=== PATIENT | male | born 1970 | race Caucasian/White ===

== ENCOUNTER 2017-01-24 12:15 | Emergency (ER) | payer OTHER ==
[~2017-01-24] VITALS: Ht 175.3 cm; Wt 105.1 kg
[~2017-01-24 12:15] MED LIST: ABILIFY2 MG PO; ALLEGRA ALLERG180 MG PO; ALPRAZOLAM0.25 M2 PO; AMIODARONE HCL200 MG PO; AMIODARONE HCL400 MG PO; BENADRYL50 MG PO; BUDEPRION SR150 MG PO; CARVEDILOL25 MG PO; DIGOXIN125 MCG PO; DOXYCYCLINE HY100 M3 PO; ENTRESTO 49 MG1 EACH PO; EPLERENONE25 MG PO; FISH OIL 1,0001 EAC7 PO; GUAIFENESI100 MG/5 M PO; LANOXIN,DIGI0.125 MG PO; LASIX40 MG PO; LIPITOR20 MG PO; LISINOPRIL10 MG PO; LOSARTAN POTASS50 MG PO; LUNESTA3 MG PO; MAGNESIUM OXID400 MG PO; OMEPRAZOLE40 M1 PO; PRAVASTATIN SOD40 MG PO; PREDNISONE20 MG PO; WELLBUTRIN XL300 MG PO; ZESTRIL,PRINIVI10 MG PO; ZOLOFT50 MG PO; Zestril,Prinivil PO
[2017-01-24 13:42] LABS: HEMATOCRIT 46.9 % (38.0-50.0); MCV 97.1 FL (86-99); MEAN PLAT.VOLUME 10.3 uM^3 (9.0-12.4); PLATELET COUNT 146 K/uL (156-360); RBC DIS.WIDTH-CV 12.8 % (11.8-14.6); RBC DIS.WIDTH-SD 46.2 % (39-53); RED BLOOD COUNT 4.83 M/uL (4.00-5.50); WHITE BLOOD COUNT 6.1 K/uL (4.1-10.2)
[2017-01-24 13:50] LABS: CHLORIDE 103 mEq/L (99-109); POTASSIUM 4.3 mEq/L (3.7-5.4); SODIUM 136 mEq/L (136-147)
[2017-01-24 13:52] LABS: GLUCOSE 95 mg/dL (70-99)
[2017-01-24 13:53] LABS: ANION GAP 10 MEQ/L (2-14)
[2017-01-24 13:56] LABS: GFR ESTIMATE (CALCULATED) > 59 mL/min/; UREA NITROGEN (BUN) 11 mg/dL (9-23)
[2017-01-24 14:03] LABS: TROP-I INTERPRETATION NEGATIVE; TROPONIN-I < 0.01 ng/mL (0.0-0.30)
[2017-01-24 16:18] LABS: TROP-I INTERPRETATION NEGATIVE; TROPONIN-I < 0.01 ng/mL (0.0-0.30)
[2017-01-24 16:45] VITALS: BP 123/83
== END 2017-01-24 16:45 | disposition home or self-care (01) ==
LOC: EME 12:15
PROVIDERS: Emergency Medicine
DX: R07.89 Other chest pain (principal); E78.5 Hyperlipidemia, unspecified; I10 Essential (primary) hypertension; Z95.0 Presence of cardiac pacemaker; F17.200 Nicotine dependence, unspecified, uncomplicated; F32.9 Major depressive disorder, single episode, unspecified; Z88.0 Allergy status to penicillin; Z88.1 Allergy status to other antibiotic agents
CPT/HCPCS: 71010; 80048; 84484; 85027; 93005; 99281; 99285

== ENCOUNTER 2017-12-11 21:33 | Inpatient (IN) | payer OTHER ==
[~2017-12-11] VITALS: Ht 175.3 cm; Wt 102.7 kg
[2017-12-11 23:25] LABS: HEMATOCRIT 43.4 % (38.0-50.0); HEMOGLOBIN 15.8 G/DL (12.5-16.6); MCH 35.1 PG (29.0-34.0); MCHC 36.4 G/DL (30.0-36.0); MCV 96.4 FL (86-99); PLATELET COUNT 117 K/uL (156-360); RBC DIS.WIDTH-CV 12.7 % (11.8-14.6); RBC DIS.WIDTH-SD 45.6 % (39-53); WHITE BLOOD COUNT 5.3 K/uL (4.1-10.2)
[2017-12-11 23:32] LABS: CHLORIDE 100 mEq/L (99-109); POTASSIUM 3.2 mEq/L (3.7-5.4); SODIUM 136 mEq/L (136-147)
[2017-12-11 23:34] LABS: GLUCOSE 88 mg/dL (70-99)
[2017-12-11 23:37] LABS: SERUM ETHYL ALCOHOL 289 mg/dL
[2017-12-11 23:38] LABS: CREATININE 0.7 mg/dL (0.6-1.3); GFR ESTIMATE (CALCULATED) > 59 mL/min/ (58.99-99999)
[2017-12-11 23:39] LABS: UREA NITROGEN (BUN) 6 mg/dL (9-23)
[2017-12-12 07:59] LABS: APPEARANCE CLEAR ((CLEAR)); BILIRUBIN NEGATIVE; BLOOD SMALL; COLOR YELLOW ((YELLOW)); GLUCOSE (STRIP) NEGATIVE; KETONES NEGATIVE; LEUKOCYTES NEGATIVE; NITRITE NEGATIVE; PROTEIN (STRIP) NEGATIVE; SPECIFIC GRAVITY 1.006 (1.000-1.030)
[2017-12-12 08:15] LABS: AMPHETAMINE NEGATIVE (500 ng/mL); BARBITURATES NEGATIVE (200 ng/mL); BENZODIAZEPINES NEGATIVE (150 ng/mL); BUPRENORPHINE NEGATIVE (10 ng/mL); COCAINE NEGATIVE (150 ng/mL); METHADONE NEGATIVE (200 ng/mL); METHAMPHETAMINE NEGATIVE (500 ng/mL); OPIATES (MORPHINE) NEGATIVE (100 ng/mL); OXYCODONE NEGATIVE (100 ng/mL); PHENCYCLIDINE NEGATIVE (25 ng/mL); PROPOXYPHENE NEGATIVE (300 ng/mL); THC CANNABINOIDS NEGATIVE (50 ng/mL); TRICYCLIC ANTIDEPRESSANTS NEGATIVE (300 ng/mL)
[2017-12-12 08:22] LABS: BACTERIA RARE /HPF; EPITHELIAL CELLS RARE /HPF; MUCUS TRACE /LPF; RED BLOOD CELLS 0-5 /HPF (0-5); UCUL ADDED? NO; WHITE BLOOD CELLS 0-5 /HPF (0-5)
[2017-12-12] MEDS ORDERED: ENTRESTO 49 MG1 EACH PO (10:40)
[2017-12-12] MEDS ORDERED: CARVEDILOL25 MG PO (10:40)
[2017-12-12] MEDS ORDERED: EPLERENONE25 MG PO (10:41)
[2017-12-12] MEDS ORDERED: AMIODARONE HCL200 MG PO (10:41)
[2017-12-12] MEDS ORDERED: ABILIFY15 MG PO (10:41)
[2017-12-12] MEDS ORDERED: BENADRYL25 MG PO (12:23)
[2017-12-12 14:25] VITALS: BP 125/84
[2017-12-12 16:07] VITALS: BP 125/84
[2017-12-13 10:08] VITALS: BP 107/69
[2017-12-13 16:44] VITALS: BP 136/71
[2017-12-14 08:51] VITALS: BP 122/80
[2017-12-14] MEDS ORDERED: ABILIFY15 MG PO (09:27)
[2017-12-14] MEDS ORDERED: Thiamine,Vitamin B1 PO (09:27)
[2017-12-14] MEDS ORDERED: FOLIC ACID1 MG PO (09:27)
== END 2017-12-14 11:30 | disposition home or self-care (01) | DRG 885 ==
LOC: EME 21:33 → 1WEST 12-12 11:11 → EDOF 12-12 11:11 → 1WEST 12-12 11:11
PROVIDERS: Emergency Medicine
PROC: HZ2ZZZZ Detoxification Services for Substance Abuse Treatment (ICD-10-PCS; principal; 2017-12-12)
DX: F33.2 Major depressive disorder, recurrent severe without psychotic features (principal); R45.851 Suicidal ideations; F10.239 Alcohol dependence with withdrawal, unspecified; E78.5 Hyperlipidemia, unspecified; F17.210 Nicotine dependence, cigarettes, uncomplicated; F10.229 Alcohol dependence with intoxication, unspecified; Y90.8 Blood alcohol level of 240 mg/100 ml or more; Z88.0 Allergy status to penicillin; Z91.14 Patient's other noncompliance with medication regimen; Z98.84 Bariatric surgery status; Z81.8 Family history of other mental and behavioral disorders; Z81.1 Family history of alcohol abuse and dependence
CPT/HCPCS: 80048; 81003; 85027; 90837; 97165 GO; 99281; 99285; G0480

== ENCOUNTER → 2018-02-27 | Outpatient (CLI) | payer OTHER ==
[~2018-02-27] VITALS: Ht 175.3 cm; Wt 101.1 kg
[~2018-02-27] MED LIST changes: +ABILIFY15 MG PO; +BENADRYL25 MG PO; +COREG25 M1 PO; +FOLIC ACID1 MG PO; +LIBRIUM25 MG PO; +Thiamine,Vitamin B1 PO; +WELLBUTRIN SR100 MG PO
== END | disposition home or self-care (01) ==
LOC: AMB 11:58
DX: D12.3 Benign neoplasm of transverse colon (principal); D12.2 Benign neoplasm of ascending colon; K63.5 Polyp of colon; K64.8 Other hemorrhoids; K57.30 Diverticulosis of large intestine without perforation or abscess without bleeding; Z80.0 Family history of malignant neoplasm of digestive organs; I42.9 Cardiomyopathy, unspecified; E78.00 Pure hypercholesterolemia, unspecified; I10 Essential (primary) hypertension; Z85.89 Personal history of malignant neoplasm of other organs and systems; Z98.84 Bariatric surgery status; F17.200 Nicotine dependence, unspecified, uncomplicated; Z88.0 Allergy status to penicillin
CPT/HCPCS: 88305; J2250

== ENCOUNTER 2018-03-27 13:20 | Emergency (ER) | payer OTHER ==
[~2018-03-27] VITALS: Ht 175.3 cm; Wt 98.9 kg
[2018-03-27 14:16] LABS: BASOPHIL (%) 0.7 % (0-1); BASOPHIL COUNT 0.1 K/uL (0-0.1); EOSINOPHIL (%) 0.5 % (0-5); HEMATOCRIT 50.6 % (38.0-50.0); HEMOGLOBIN 18.1 G/DL (12.5-16.6); IMMATURE GRANULOCYTE (%) 0.8 % (0.0-0.7); LYMPHOCYTE (%) 13.6 % (15-42); LYMPHOCYTE COUNT 1.2 K/uL (1.0-2.8); MCH 35.8 PG (29.0-34.0); MCHC 35.8 G/DL (30.0-36.0); MCV 100.2 FL (86-99); MONOCYTE (%) 10.9 % (3-12); MONOCYTE COUNT 0.9 K/uL (0-0.8); NEUTROPHIL (%) 73.5 % (45-76); NEUTROPHIL COUNT 6.3 K/uL (1.8-6.4); PLATELET COUNT 146 K/uL (156-360); RBC DIS.WIDTH-CV 12.9 % (11.8-14.6); RBC DIS.WIDTH-SD 47.8 % (39-53); RED BLOOD COUNT 5.05 M/uL (4.00-5.50); WHITE BLOOD COUNT 8.5 K/uL (4.1-10.2)
[2018-03-27 14:26] LABS: CHLORIDE 97 mEq/L (99-109); POTASSIUM 3.9 mEq/L (3.7-5.4); SODIUM 133 mEq/L (136-147)
[2018-03-27 14:27] LABS: GLUCOSE 88 mg/dL (70-99)
[2018-03-27 14:31] LABS: CREATININE 1.7 mg/dL (0.6-1.3); GFR ESTIMATE (CALCULATED) 46 mL/min/ (58.99-99999)
[2018-03-27 14:32] LABS: UREA NITROGEN (BUN) 14 mg/dL (9-23)
[2018-03-27 14:38] LABS: TROP-I INTERPRETATION NEGATIVE; TROPONIN-I 0.01 ng/mL (0.0-0.30)
[2018-03-27 16:47] LABS: APPEARANCE SL.HAZY ((CLEAR)); BILIRUBIN NEGATIVE; BLOOD SMALL; COLOR YELLOW ((YELLOW)); GLUCOSE (STRIP) NEGATIVE; KETONES 20; LEUKOCYTES NEGATIVE; NITRITE NEGATIVE; PROTEIN (STRIP) 30; SPECIFIC GRAVITY 1.015 (1.000-1.030)
[2018-03-27 16:51] LABS: BACTERIA RARE /HPF; CALCIUM OXALATE CRYSTALS 1+ /HPF; EPITHELIAL CELLS RARE /HPF; HYALINE CASTS TNTC /LPF; MUCUS 4+ /LPF; RED BLOOD CELLS 0-5 /HPF (0-5)
[2018-03-27 17:57] LABS: CHLORIDE 103 mEq/L (99-109); POTASSIUM 3.9 mEq/L (3.7-5.4); SODIUM 133 mEq/L (136-147)
[2018-03-27 18:03] LABS: UREA NITROGEN (BUN) 16 mg/dL (9-23)
[2018-03-27 18:07] LABS: TROP-I INTERPRETATION NEGATIVE; TROPONIN-I 0.01 ng/mL (0.0-0.30)
[2018-03-27 18:13] LABS: CREATININE 1.2 mg/dL (0.6-1.3); GFR ESTIMATE (CALCULATED) > 59 mL/min/ (58.99-99999); GLUCOSE 143 mg/dL (70-99)
[2018-03-27 18:37] VITALS: BP 91/58
== END 2018-03-27 18:43 | disposition home or self-care (01) ==
LOC: EME 13:20
PROVIDERS: Nurse Practitioner Family
PROC: 3E0234Z Introduction of Serum, Toxoid and Vaccine into Muscle, Percutaneous Approach (ICD-10-PCS; principal; 2018-03-27)
DX: R55 Syncope and collapse (principal); E86.0 Dehydration; S60.812A Abrasion of left wrist, initial encounter; W19.XXXA Unspecified fall, initial encounter; Y93.H2 Activity, gardening and landscaping; Y99.0 Civilian activity done for income or pay; Z23 Encounter for immunization; Z95.0 Presence of cardiac pacemaker; I42.9 Cardiomyopathy, unspecified; I11.0 Hypertensive heart disease with heart failure; I50.9 Heart failure, unspecified; F32.9 Major depressive disorder, single episode, unspecified; E78.5 Hyperlipidemia, unspecified; Z88.0 Allergy status to penicillin; F17.200 Nicotine dependence, unspecified, uncomplicated
CPT/HCPCS: 71046; 80048; 80048 91; 81003; 83605; 84484; 85025; 93005; 99281; 99285; J7030